=== PATIENT | male | born 1990 | race Two or more races ===

== ENCOUNTER 2019-07-11 22:54 | Emergency (ER) | payer SELFPAY ==
[~2019-07-11] VITALS: Ht 175.3 cm; Wt 136.1 kg
[2019-07-12 01:35] VITALS: BP 148/89
[2019-07-12] MEDS ORDERED: DexAMETHasone SOD PHOS 10MG/1ML VIAL INJ IM ONE (01:45)
[2019-07-12] MEDS ORDERED: cefTRIAXone SOD 1,000 MG VL IM ONE (01:45)
== END 2019-07-12 02:30 | disposition home or self-care (01) ==
LOC: ER 22:57
DX: L60.0 Ingrowing nail (principal); L50.0 Allergic urticaria
CPT/HCPCS: 96372; 99283; J0696; J1100